=== PATIENT | female | born 1985 | race Caucasian/White ===

== ENCOUNTER 2021-06-22 06:14 | Inpatient (IN) | payer MEDICAID, SELFPAY ==
[2021-06-22] VITALS (11 sets, daily range): BP systolic 84–113; BP diastolic 50–68; PULSE 102–145; RESP 18–22; TEMP 36.3–37.2; O2SAT 99–100; BMI 30.6
--- NOTE | 2021-06-22 06:18 | HP.PCM.HOS_ITS ---
HPI - General General Date of Admission: 06/22/21 HPI Narrative JUNE KAYE, is a 35 F who presents to an outside hospital with bilateral lower extremity edema and redness. She states that this started within the last 24 to 48 hours, though appears to be better than when it first presented itself. She does have a history of IV drug use and she says that she last injected about a week ago but she only injects in her upper extremities not in her lower extremities. She thinks that she may have had a fever at some point but cannot be sure. Denies any shortness of breath, chest pain or lightheadedness. In the outside hospital she was found to be tachycardic with an elevated D-dimer but they felt that this could have potentially been a drawing error. She refused to have another IV started and so they have a policy at that hospital to not be able to do a CTA of the chest if the IV is smaller than the 20 which is what she has in her right forearm. At the outside hospital, her renal function was okay, her LFTs were little bit elevated and she did not have a white count or a fever. She was also oxygenating very well on room air. They were concerned for possible sepsis however the erythema, edema is bilateral which makes cellulitis extremely unlikely. She states that she is normally tachycardic but her blood pressure is also normally high. CPK at the outside hospital was also elevated as was her proBNP to about 300. She was given a dose of therapeutic Lovenox sec ondary to the D-dimer and the lower extremity edema. [facility] Medical History (Updated 06/22/21 @ 06:[address] Florin Mclean MD) IVDU (intravenous drug user) Smoker Tachycardia Home Medications NK 06/22/21 [History Last Taken Unknown] Allergy/AdvReac Type Severity Reaction Status Date / Time clindamycin Allergy Hives Verified 11/17/13 16:40 sulfamethoxazole Allergy Hives Verified 11/17/13 16:40 [From Bactrim] trimethoprim [From Bactrim] Allergy Hives Verified 11/17/13 16:40 Family History (Updated 06/22/21 @ 06:[address] Flroin Mclean MD) Other CAD (coronary artery disease) Surgical History (Updated 06/22/21 @ 06:10 by Jakub Balbuena) Hx of section Hx of cholecystectomy Social History Smoking Status: Current every day smoker tobacco type: cigarettes ROS Constitutional Constitutional: Reports fever(s); Denies chills, fatigue or malaise Eyes Eyes: Denies blurry vision ENT HEENT: Denies headache(s) or nasal discharge Cardiovascular Cardiovascular: Reports edema; Denies chest pain, dyspnea on exertion or syncope Respiratory/Chest Respiratory/Chest: Denies cough, shortness of breath at rest or shortness of breath with exertion Gastrointestinal Gastrointestinal: Denies constipation, diarrhea, nausea or vomiting Genitourinary Genitourinary: Denies dysuria Integumentary Integumentary: Reports erythema Neurologic Neurologic: Denies focal weakness, numbness or tremor(s) Psychiatric Psychiatric: Denies anxiety or depression Vital Signs Vital Signs Vital Signs: 06/22/21 06:00 Temperature 98.4 F Temperature Source Oral Pulse Rate 145 H Respiratory Rate 22 H Blood Pressure 84/63 L Blood Pressure Mean 70 Blood Pressure Source Monitor Blood Pressure Position Semi-Fowlers Blood Pressure Location Left Arm Pulse Ox 100 Oxygen Delivery Method Room Air Weight Weight: 195 lb 5.273 oz Body Mass Index (BMI) 30.6 Physical Exam Const alert and oriented x3 General Appearance: cooperative HEENT normocephalic and moist oral mucous membranes Eyes PERRL, EOMs intact bilaterally and conjunctivae normal Neck supple and no JVD Resp normal respiratory effort, no retractions, no use of accessory muscles and clear to auscultation bilaterally Auscultation: Negative for crackles, rales, rhonchi or wheezes Cardio regular rhythm, S1 normal heart sound, S2 normal heart sound and no murmurs Rate: tachycardic GI soft to palpation, non-tender and non-distended; Negative for hepatosplenomegaly Extremity General Extremity: edema bilateral lower extremity Details: moderate; Negative for clubbing or cyanosis Skin Skin Narrative: Bilateral lower extremity nonblanching redness with some warmth. She also has areas of skin breakdown on her legs and upper arms, which appears to be areas of picked at scabs Neuro no focal motor deficits and no sensory deficits noted Psych affect normal Appearance: appropriate Assessment & Plan Assessment/Plan (1) Bilateral lower extremity edema: PLAN: 1. Bilateral lower extremity edema with redness and an elevated D-dimer ? Continue with therapeutic Lovenox ? Obtain Doppler ultrasound of her lower extremities to evaluate for DVT ? Continue with an echo, she does have bilateral edema with an elevated BNP ? She did receive broad-spectrum antibiotics as an outpatient however bilateral cellulitis is not a clinical entity. She did have blood cultures drawn at the outside hospital which we did be followed up on. White blood cell count was normal and she is afebrile ? We will repeat lactic acid ? Continue with IV fluids ? If the Doppler ultrasound is negative may benefit from a CTA of the chest versus repeated D-dimer to make sure that it was actually an appropriate elevation 2. IV drug use with elevated LFTs ? We will repeat CMP this morning and then tomorrow ? 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
--- NOTE | 2021-06-22 06:19 | VDLE_ITS ---
Reason For Study: Elevated D-dimer RIGHT LEFT GSV is normal. GSV is normal. CFV is compressible, spontaneous, phasic, CFV is compressible, spontaneous, phasic, competent and demonstrates normal competent, and demonstrates normal augmentation. augmentation. FV is compressible, spontaneous, phasic, FV is compressible, spontaneous, phasic, competent and demonstrates normal competent and demonstrates normal augmentation. augmentation. POP V is compressible, spontaneous, phasic, POP V is compressible, spontaneous, phasic, competent and demonstrates normal competent and demonstrates normal augmentation. augmentation. T/P Trunk is compressible. T/P Trunk is compressible. PTV is compressible. PTV is compressible. RT PerV is compressible. LT PerV is compressible. Procedure This is a venous duplex using B-mode, color flow and spectral Doppler. Exam performed portable in patient room. A preliminary report was called and/or faxed to Dr. Aguilar. VL/Venous Duplex US - Ruddy Extrem Interpretation Summary No evidence for acute deep venous thrombosis bilateral lower extremities with p atent and compressible bilateral great saphenous veins. Ordering Physician: Florin Mclean Performed By: Kavitha Roberts RVT
--- NOTE | 2021-06-22 06:24 | ECHOD_ITS ---
Reason For Study: CHF Procedure This was a 2D Doppler, Color Flow transthoracic echocardiogram. Exam performed portable in patient room. Left Ventricle Normal LV size. The estimated ejection fraction is 55 %. No evidence for diastolic dysfunction. No regional wall motion abnormalities noted. Right Ventricle Normal RV size. Normal systolic function. Atria Normal left atrium. Normal right atrium. No doppler evidence for ASD. Mitral Valve There is no mitral valve stenosis. No mitral valve insufficiency. Tricuspid Valve There is no tricuspid stenosis. Unable to estimate RV systolic pressure due to inadequate jet, pulmonary artery pressure probably normal. Aortic Valve Trisinus/trileaflet aortic valve. There is no aortic stenosis. No aortic valve insufficiency. Pulmonic Valve There is no pulmonic valvular stenosis. Trivial pulmonic valve insufficiency. Great Vessels Normal aortic root. MMode/2D Measurements & Calculations LVIDd: 4.6 cm IVSd: 0.83 cm Ao root diam: 3.1 cm LVIDs: 3.1 cm LVPWd: 0.97 cm RVDd: 3.4 cm FS: 31.1 % LAV(MOD-bp): 54.5 ml LVAd ap4: 35.9 cm2 SV(MOD-sp4): 68.0 ml LAV(MOD-bp) Indexed: 27.2 ml/m2 LVLd ap4: 8.6 cm LAV(MOD-sp2): 49.5 ml EDV(MOD-sp4): 125.4 ml LAV(MOD-sp4): 57.4 ml EDV(sp4-el): 127.0 ml LVAs ap4: 21.8 cm2 LVLs ap4: 7.0 cm ESV(MOD-sp4): 57.4 ml ESV(sp4-el): 58.2 ml EF(MOD-sp4): 54.2 % EF(sp4-el): 54.1 % SV(sp4-el): 68.7 ml LA dimension(2D): 3.6 cm LA A4 area: 19.8 cm2 RA A4 area: 15.5 cm2 Time Measurements MV dec time: 0.12 sec Doppler Measurements & Calculations MV E max pilo: 97.2 cm/sec Lat Peak E' Pilo: 17.1 cm/sec Med Peak E' Pilo: 17.7 cm/sec MV A max pilo: 106.9 cm/sec E/E' lat: 5.7 E/E' med: 5.5 MV E/A: 0.91 Ao V2 max: 173.9 cm/sec LV V1 max: 132.8 cm/sec PA V2 max: 99.1 cm/sec Ao max P.1 mmHg LV V1 max P.1 mmHg TR max pilo: 314.1 cm/sec TR max P.5 mmHg ECHO/Echo Complete Interpretation Summary The estimated ejection fraction is 55 %. No evidence for diastolic dysfunction. Ordering Physician: Florin Mclean Performed By: Tina Johnson RDCS
[2021-06-22 06:48] LABS: Absolute Neutrophil Count 4.2 X10^3/uL (2.0-7.7); Basophil# 0.01 X10^3/uL; Basophil% 0.2 % (0-1); Hematocrit 27.8 % (37-47); Hemoglobin 9.3 g/dL (12.0-15.0); Lymphocyte % 8.2 % (19-41); Mean Corp Hgb Conc 33.5 g/dL (32-36); Mean Corpuscular Volume 89.7 fL (81-99); Mean Platelet Vol. 9.6 fl (6.2-12.0); Monocyte# 0.19 X10^3/uL; Monocyte% 3.9 % (0-10); NRBC Flagged by Analyzer 0 % (0-5); Neutrophil # 4.24 X10^3/uL (2.7-7.7); Neutrophil % 87.3 % (47-70); POSITIVE COUNT YES; POSITIVE DIFFERENTIAL YES; POSITIVE MORPHOLOGY YES; Platelet Count 96 K/mm3 (150-450); RBC Distribution Width CV 13.2 % (11.6-14.6); RBC Distribution Width SD 43.7 fl (35.1-43.9); White Blood Count 4.9 K/mm3 (4.4-11.0)
[2021-06-22 06:51] LABS: Differential Indicated SCAN CRITERIA MET
[2021-06-22] MEDS: 0.9% Normal Saline 1,000 ML 100 ML IV ×2 (06:55→17:34)
[2021-06-22] MEDS: 0.9% Saline Lock 10 ML Syringe IV ×2 (06:55→12:05)
[2021-06-22 07:04] LABS: ALB/GLOB Ratio 0.6 RATIO (0.9-2.4); AST(SGOT) 90 U/L (15-37); Alanine Aminotransfer ALT/SGPT 106 U/L (13-56); Albumin, Serum 2.4 g/dL (3.2-5.0); Alkaline Phosphatase 82 U/L (45-117); Anion Gap 5 (5-15); BUN 9 mg/dL (7-18); BUN/Creat Ratio 13.2 RATIO (10-20); Calcium,Total 7.2 mg/dL (8.5-10.1); Chloride 110 mmol/L (98-107); Creatinine, Serum 0.68 mg/dL (0.55-1.02); EST Glomerular Filtration Rate 105 mL/min (>60); Est Glom Filt Rate - Afr Amer 127 mL/min (>60); Estimated Creatinine Clearance 113.36 ml/min; Globulin 3.7 g/dL (2.2-4.2); Glucose 106 mg/dL (74-106); Potassium 3.2 mmol/L (3.5-5.1); Protein, Total 6.1 g/dL (6.4-8.2); Sodium Level 137 mmol/L (136-145)
[2021-06-22 07:05] LABS: Differential Comment SCANNED
[2021-06-22 07:09] LABS: Lactic Acid 1.4 mmol/L (0.4-1.9)
[2021-06-22 09:01] LABS: BNP,B-Type NATRIURETIC PEPTIDE 46.4 pg/mL (0-100)
--- NOTE | 2021-06-22 09:35 | CASEMGMT ---
RN CM Face to Face with patient for initial transition planning/care coordination assessment. RN CM introduced self and role at [facility]. Patient lying in bed, alert and oriented. Patient willing to participate in assessment and is able to answer all questions appropriately. Care providers, pharmacy, and demographics verified. Patient wishes to discharge home, denies need for home health at this time. Patient states she has no further needs or concerns at this time. CM to follow for discharge planning needs that may arise. PCP: No PCP, CM to provide patient with list Specialists: none [facility]erred Pharmacy: [facility] Insurance: none Prescription Benefit: none Living Will/HPOA: none LNOK: friend Living Arrangements: Patient lives with friend in a single story home with no steps to enter. Patient states she is independent at home. Transportation: friend DME/HHC: Patient denies DME or previous HHC. Patient states she smokes 1/2 PPD of cigarettes. Denies alcohol or other drug use to this CM. Disposition Plan: Patient to discharge home with follow-up plans in place. Kavitha ARRINGTON, RN, CM
[2021-06-22] MEDS: Acetaminophen 325 MG Tablet 650 MG PO ×2 (10:06→21:48)
--- NOTE | 2021-06-22 10:18 | CASEMGMT ---
Pt provided with list of local PCP's and states she was previously on [facility]ONG in [place] but then moved to [place]. Pt states 'just moved back' from [facility] and has not reapplied for [facility]. With further clarification, pt has been back in [place] since November. Pt also states last used meth last week and declines any assistance/resources, stating 'I don't think I have a problem.' Joey BECKHAM updated on all, voices understanding. Nirav FULLER CM
--- NOTE | 2021-06-22 11:10 | CASEMGMT ---
RN SABINA indicated patient would like a Medicaid application. RN SABINA also said patient declined resources for her Meth use. SW went to patient's room and she was lying in her bed with lights out. SW introduced self and patient said she did not feel well. SW left a Medicaid application and some substance abuse resources. Patient asked SW to turn down the temperature in the room. SW did this and left room closing door. Jana JIMENEZ
--- NOTE | 2021-06-22 11:48 | EKG12_ITS ---
Test Reason : TACHY Blood Pressure : / mmHG Vent. Rate : 111 BPM Atrial Rate : 111 BPM P-R Int : 136 ms QRS Dur : 076 ms QT Int : 332 ms P-R-T Axes : 062 055 044 degrees QTc Int : 451 ms Sinus tachycardia Low voltage QRS (Limb Leads) Confirmed by MYNOR SOLIS, PIETRO ([id number]), graphic editor KENYETTA GONZALEZ ([id number]) on 06/26/2021 11:40:53 AM Referred By: ODALYS Confirmed By:PIETRO LOWE MD
[2021-06-22] MEDS: Potassium Chloride Oral Tablet 20 MEQ 40 MEQ PO (12:05)
[2021-06-22 12:13] LABS: Thyroid Stim Hormone (TSH) 0.42 uIU/mL (0.358-3.74)
--- NOTE | 2021-06-22 13:44 | PN.HOSP_ITS ---
Subjective Subjective Patient seen and examined. She complained of weakness and tiredness. She was still tachycardic. She was having duplex of LEs at the time of review. Review of systems is otherwise negative. Objective Data Objective Data Vital Signs: Vital Signs Temp Pulse Resp BP Pulse Ox 98.6 F 124 H 18 108/67 100 06/22/21 09:50 06/22/21 10:00 06/22/21 09:50 06/22/21 09:50 06/22/21 09:50 Oxygen Delivery Method Room Air Weight: 195 lb 5.273 oz Body Mass Index (BMI) 30.6 Intake & Output: Intake and Output for Last 24 Hours 06/20/21 06/21/21 06/22/21 23:59 23:59 23:59 Intake Total 480 / 480 Balance 480 / 480 Lab / Micro Data Result Diagrams: 06/22/21 06:35 06/22/21 06:35 Labs: Laboratory Results - last 24 hr 06/22/21 06:35: Lactic Acid 1.4 06/22/21 06:35: WBC 4.9, RBC 3.10 L, Hgb 9.3 L, Hct 27.8 L, MCV 89.7, MCH 30.0, MCHC 33.5, RDW Std Deviation 43.7, RDW Coeff of Juice 13.2, Plt Count 96 L, MPV 9.6, Immature Gran % (Auto) 0.400, Neut % (Auto) 87.3 H, Lymph % (Auto) 8.2 L, [place] % (Auto) 3.9, Eos % (Auto) 0.0, Baso % (Auto) 0.2, Absolute Neuts (auto) 4.2, Absolute Lymphs (auto) 0.40 L, Nucleated RBC % 0, Differential Comment SCANNED 06/22/21 06:35: Sodium 137, Potassium 3.2 L, Chloride 110 H, Carbon Dioxide 22.0, Anion Gap 5, BUN 9, Creatinine 0.68, Estim Creat Clear Calc 113.36, Est GFR (MDRD) Af Amer 127, Est GFR (MDRD) Non-Af 105, BUN/Creatinine Ratio 13.2, Glucose 106, Calcium 7.2 L, Total Bilirubin 0.80, AST 90 H, ALT 106 H, Alkaline Phosphatase 82, Total Protein 6.1 L, Albumin 2.4 L, Globulin 3.7, Albumin/Globulin Ratio 0.6 L 06/22/21 06:35: B-Natriuretic Peptide 46.4 06/22/21 06:35: TSH 0.42 Radiography Diagnostic Testing: Radiology Impression Venous Doppler Study 06/22/21 06:19 Interpretation Summary No evidence for acute deep venous thrombosis bilateral lower extremities with patent and compressible bilateral great saphenous veins. Ordering Physician: Florin Mclean Performed By: Kavitha Roberts RVT Echocardiogram 06/22/21 06:24 Interpretation Summary The estimated ejection fraction is 55 %. No evidence for diastolic dysfunction. Ordering Physician: Florin Mclean Performed By: Tina Johnson RDCS Physical Exam Const alert and oriented x3 Orientation / Consciousness: lethargic Exam Limitations: no limitations HEENT head/scalp atraumatic Head and Scalp: normocephalic Mouth: dry mucous membranes Eyes PERRL, EOMs intact bilaterally and conjunctivae normal Neck no lymphadenopathy, supple and no JVD Resp normal respiratory effort, no retractions, no use of accessory muscles and clear to auscultation bilaterally Cardio regular rate, regular rhythm, S1 normal heart sound, S2 normal heart sound and no murmurs GI normal to inspection, nondistended, normoactive bowel sounds, soft to palpation, non-tender and non-distended Extremity Extremity Narrative: has erythema from ankle to mid wilson of both lower e xtremities, mildly tender, no guarding or rebound tenderness Peripheral Pulses: Yes pulses 2+ throughout Skin Skin Narrative: as under extremities Neuro oriented x3, CN's II-XII intact bilaterally and moves all extremities Sensorium / Orientation: awake and alert Psych affect normal Assessment & Plan Assessment/Plan (1) Bilateral lower extremity edema: PLAN: #Bilateral lower extremity edema and redness * Does not have any elevated white cell count. Legs tender to touch. * WBC is not elevated. There was concern about DVT but duplex of the lower extremities was negative. * in light of her history of IV drug use, I do think it is prudent to treat empirically for cellulitis though she doesnt have an elevated wbc. She says she did have a fever at home * will start on IV cefazolin empirically * #History of IV drug use * Says she uses methamphetamine IV. * Counseled to quit. LFTs were mildly elevated. Will trend. * #Tachycardia: * Patient has remained persistently tachycardic. Etiology is not clear. I do think it is prudent to get a CT of the chest to rule out any evidence of PE. * 2D echo done showed EF of 55% with no evidence of diastolic dysfunction. and no evidence of endocarditis * TSH is WNL * will do CTA to rule out a PE * * DVT prophylaxis; * was started on therapeutic Lovenox due to concerns about DVT. * Will await CTA results and then decide about stopping it.
--- NOTE | 2021-06-22 13:46 | CT_ITS ---
STUDY: CTA CHEST REASON FOR EXAM: Female, 35 years old. tachycardia, BILAT LOWER EXT EDEMA T REDNESS RADIATION DOSAGE (If Supplied By Facility): CTDIvol = ( 9.28 ) mGy, DLP = ( 342.77 ) mGycm TECHNIQUE: The examination was performed with the intravenous administration of IV 100mL Isovue-370. Post-processing of the angiographic images was performed, with multiplanar reformation and 3D reconstruction. Limited by motion artifact. Individualized dose optimization techniques were used for this CT. COMPARISON: None. FINDINGS: Normal enhancement of the main pulmonary artery and right and left pulmonary arteries. Normal enhancement of the bilateral peripheral pulmonary arteries. There is no demonstrated pulmonary embolism. Normal thoracic aorta and visualized great vessels. There is no demonstrated aortic dissection. Normal heart and pericardium. Normal mediastinum. Normal hilar regions. Normal visualized trachea and bronchi. The lungs are well expanded. There are bandlike parenchymal changes most consistent with atelectasis of the bilateral lungs. Normal pleura. Normal chest wall structures. Normal osseous structures. Normal visualized upper abdomen. CT/CTA Chest W/WO Contrast IMPRESSION: No central or segmental pulmonary embolism. Mild bibasilar atelectasis. Electronically Signed: Eliel Kurtz MD ([place]) at 15:15 EDT ,
--- NOTE | 2021-06-22 18:43 | NURSING ---
Reviewed charting with Aleksandra Camacho RN
[2021-06-22] MEDS: Cefazolin 2 GM in 0.9% Normal Saline 100 ML IV (21:44)
[2021-06-22] MEDS: MELATONIN 3 MG TABLET PO (21:48)
[2021-06-23 02:08] VITALS: BP 109/59; PULSE 110; RESP 18; TEMP 38.3; O2SAT 100
[2021-06-23] MEDS: 0.9% Normal Saline 1,000 ML 100 ML IV (02:13)
[2021-06-23 03:00] VITALS: PULSE 112
--- NOTE | 2021-06-23 04:56 | NURSING ---
Patient transfered from [facility] where blood cultures were obtained around 0440 they called stating cultures were positive for MRSA. Caridad notified
[2021-06-23] MEDS: 0.9% Saline Lock 10 ML Syringe IV (05:44)
--- NOTE | 2021-06-23 05:57 | PCM.RX.CS ---
Consult Pharmacy has been consulted to manage selected antiobiotic: Vancomycin Type of Consult: New start Labs: Sodium 137 mmol/L (136-145) 06/22/21 06:35 Potassium 3.2 mmol/L (3.5-5.1) L 06/22/21 06:35 Chloride 110 mmol/L (98-107) H 06/22/21 06:35 Carbon Dioxide 22.0 mmol/L (21.0-32.0) 06/22/21 06:35 Anion Gap 5 (5-15) 06/22/21 06:35 BUN 9 mg/dL (7-18) 06/22/21 06:35 Creatinine 0.68 mg/dL (0.55-1.02) 06/22/21 06:35 Est GFR (MDRD) Af Amer 127 mL/min (>60) 06/22/21 06:35 Est GFR (MDRD) Non-Af 105 mL/min (>60) 06/22/21 06:35 BUN/Creatinine Ratio 13.2 RATIO (10-20) 06/22/21 06:35 Glucose 106 mg/dL (74-106) 06/22/21 06:35 Weight used for dosin.6 kg Estimated Creatinine Clearance: 133 Goal Trough: 15-20 mcg/mL Pharmacy Plan for Drug Dosing: Pharmacy Service will continue to monitor and adjust dosing as required. Medications Vancomycin HCl 2,000 mg/ (Sodium Chloride) 540 mls @ 250 mls/hr IV X1 ONE Stop: 06/23/21 07:39 Last Admin: 06/23/21 05:44 Dose: 250 mls/hr Documented by: Vancomycin HCl (Vancomycin) 1,000 mg in 200 mls @ 200 mls/hr IV Q8H [facility] Follow-Up Labs: Trough Vancomycin Labs to be done on [date and time ordered]: 06/24 @ 6312
[2021-06-23 06:59] VITALS: PULSE 106
[2021-06-23 08:17] VITALS: BP 114/61; PULSE 110; RESP 18; TEMP 37.8; O2SAT 99
[2021-06-23] MEDS: Acetaminophen 325 MG Tablet 650 MG PO (08:26)
[2021-06-23 09:01] LABS: Absolute Lymphocyte Count 0.67 X10^3/uL (0.83-4.51); Absolute Neutrophil Count 2.9 X10^3/uL (2.0-7.7); Basophil# 0.01 X10^3/uL; Basophil% 0.3 % (0-1); Eosinophil# 0.01 X10^3/uL; Eosinophils% 0.3 % (0-5); Hematocrit 24.9 % (37-47); Hemoglobin 8.6 g/dL (12.0-15.0); Lymphocyte # 0.67 X10^3/ul (0.83-4.51); Lymphocyte % 17.2 % (19-41); Mean Corp Hgb Conc 34.5 g/dL (32-36); Mean Corpuscular Volume 86.8 fL (81-99); Mean Platelet Vol. 10.3 fl (6.2-12.0); Monocyte# 0.22 X10^3/uL; Monocyte% 5.7 % (0-10); NRBC Flagged by Analyzer 0 % (0-5); Neutrophil # 2.94 X10^3/uL (2.7-7.7); Neutrophil % 75.5 % (47-70); POSITIVE COUNT YES; POSITIVE MORPHOLOGY YES; Platelet Count 88 K/mm3 (150-450); RBC Distribution Width CV 13.3 % (11.6-14.6); RBC Distribution Width SD 42.5 fl (35.1-43.9); Red Blood Count 2.87 M/mm3 (4.2-5.4); White Blood Count 3.9 K/mm3 (4.4-11.0)
[2021-06-23 09:03] LABS: Differential Indicated SCAN CRITERIA MET
[2021-06-23 09:13] LABS: ALB/GLOB Ratio 0.6 RATIO (0.9-2.4); AST(SGOT) 66 U/L (15-37); Alanine Aminotransfer ALT/SGPT 83 U/L (13-56); Albumin, Serum 2.1 g/dL (3.2-5.0); Alkaline Phosphatase 127 U/L (45-117); Anion Gap 4 (5-15); BUN 6 mg/dL (7-18); BUN/Creat Ratio 9.4 RATIO (10-20); Calcium,Total 7.6 mg/dL (8.5-10.1); Chloride 112 mmol/L (98-107); Creatinine, Serum 0.64 mg/dL (0.55-1.02); EST Glomerular Filtration Rate 114 mL/min (>60); Est Glom Filt Rate - Afr Amer 137 mL/min (>60); Estimated Creatinine Clearance 120.45 ml/min; Globulin 3.6 g/dL (2.2-4.2); Glucose 99 mg/dL (74-106); Potassium 3.3 mmol/L (3.5-5.1); Protein, Total 5.7 g/dL (6.4-8.2); Sodium Level 137 mmol/L (136-145)
[2021-06-23 09:17] LABS: CPK Total, Creatine Kinase 33 U/L (26-192)
[2021-06-23 09:36] LABS: Differential Comment SCANNED
--- NOTE | 2021-06-23 10:44 | PN.HOSP_ITS ---
Subjective Subjective Patient seen and examined. She complained of feeling weak and said she had pain in her legs. She developed a fever of 100F today. Review of systems is otherwise negative. Objective Data Objective Data Vital Signs: Vital Signs Temp Pulse Resp BP Pulse Ox 100.0 F H 110 H 18 114/61 99 06/23/21 08:17 06/23/21 08:17 06/23/21 08:17 06/23/21 08:17 06/23/21 08:17 Oxygen Delivery Method Room Air Weight: 195 lb 5.273 oz Body Mass Index (BMI) 30.6 Intake & Output: Intake and Output for Last 24 Hours 06/21/21 06/22/21 06/23/21 23:59 23:59 23:59 Intake Total 1743.33 / 1743.33 1405 / 1405 Balance 1743.33 / 1743.33 1405 / 1405 Lab / Micro Data Result Diagrams: 06/23/21 08:40 06/23/21 08:40 Labs: Laboratory Results - last 24 hr 06/22/21 06:35: TSH 0.42 06/23/21 08:40: WBC 3.9 L, RBC 2.87 L, Hgb 8.6 L, Hct 24.9 L, MCV 86.8, MCH 30.0, MCHC 34.5, RDW Std Deviation 42.5, RDW Coeff of Juice 13.3, Plt Count 88 L, MPV 10.3, Immature Gran % (Auto) 1.000 H, Neut % (Auto) 75.5 H, Lymph % (Auto) 17.2 L, [place] % (Auto) 5.7, Eos % (Auto) 0.3, Baso % (Auto) 0.3, Absolute Neuts (auto) 2.9, Absolute Lymphs (auto) 0.67 L, Nucleated RBC % 0, Differential Comment SCANNED 06/23/21 08:40: Sodium 137, Potassium 3.3 L, Chloride 112 H, Carbon Dioxide 21.0, Anion Gap 4 L, BUN 6 L, Creatinine 0.64, Estim Creat Clear Calc 120.45, Est GFR (MDRD) Af Amer 137, Est GFR (MDRD) Non-Af 114, BUN/Creatinine Ratio 9.4 L, Glucose 99, Calcium 7.6 L, Total Bilirubin 0.70, AST 66 H, ALT 83 H, Alkaline Phosphatase 127 H, Total Protein 5.7 L, Albumin 2.1 L, Globulin 3.6, Albumin/Globulin Ratio 0.6 L 06/23/21 08:40: Total Creatine Kinase 33 Radiography Diagnostic Testing: Radiology Impression Chest CTA 06/22/21 13:46 IMPRESSION: No central or segmental pulmonary embolism. Mild bibasilar atelectasis. Electronically Signed: Eliel Kurtz MD ([place]) at 15:15 EDT , Physical Exam Const alert and oriented x3 General Appearance: cooperative Orientation / Consciousness: lethargic Exam Limitations: no limitations HEENT normocephalic and head/scalp atraumatic Head and Scalp: normocephalic Eyes PERRL, EOMs intact bilaterally and conjunctivae normal Neck no lymphadenopathy, supple and no JVD Resp normal respiratory effort, no retractions, no use of accessory muscles and clear to auscultation bilaterally Auscultation: Negative for crackles, rales, rhonchi or wheezes Cardio regular rate, regular rhythm, S1 normal heart sound, S2 normal heart sound and no murmurs Rate: tachycardic GI normal to inspection, nondistended, normoactive bowel sounds, soft to palpation, non-tender and non-distended; Negative for hepatosplenomegaly Extremity Extremity Narrative: erythema of lower extremities is improving. General Extremity: edema bilateral lower extremity Details: moderate; Negative for clubbing or cyanosis Peripheral Pulses: Yes pulses 2+ throughout Skin Skin Narrative: as under extremities Neuro oriented x3, CN's II-XII intact bilaterally, moves all extremities, no focal motor deficits and no sensory deficits noted Sensorium / Orientation: awake and alert Psych affect normal Appearance: appropriate Assessment & Plan Assessment/Plan (1) Bilateral lower extremity edema: PLAN: #MRSA bacteremia * Blood cultures at outside hospital apparently grew MRSA. Patient started on IV vancomycin yesterday as well as it was stopped. * Repeat blood cultures pending. * Infectious disease consulted. * Of note she did have 2D echo done yesterday which showed EF of 55% with no evidence of diastolic dysfunction and no evidence of endocarditis. #Bilateral lower extremity edema and redness * Improving. Now on IV vancomycin on account of positive MRSA in the blood. * WBC is 3.9. Duplex of the lower extremities was negative for DVT * #History of IV drug use * uses methamphetamine IV. * Counseled to quit. LFTs were mildly elevated. Will trend. * #Tachycardia: * Patient has remained persistently tachycardic. Etiology is not clear. * CT of the chest was negative for any evidence of PE I do think it is prudent to get a CT of the chest to rule out any evidence of PE. * 2D echo done showed EF of 55% with no evidence of diastolic dysfunction. and no evidence of endocarditis * TSH is WNL at 0.43 * will monitor * start on low dose metoprolol * DVT prophylaxis; * lovenox Charges/Coding Visit Charges Inpatient E&M: 06718 Subs Hosp L3
--- NOTE | 2021-06-23 12:35 | NURSING ---
At the beginning of shift, patient expressed to staff that she was going to leave if she didn't start feeling better. Patient was educated multiple times on the risks of leaving against medical advice, and the importance of staying for IV antibiotic treatment. Patient asked for pain medication for her legs, and refused the medication that was ordered. Patient asked for IV to be taken out so that she could leave. This RN removed peripheral IV and witnessed the signature of AMA papers. made aware, and patient walked out.
--- NOTE | 2021-06-23 16:30 | PCM.DC.SUM ---
Providers Date of Admission: 06/22/21 Primary Care Physician: Martha Primary Care Phys Consultations 06/23/21 08:02 Consult: Infectious Disease Routine Consulting Provider: Brandon Feliz Reason for Consult: MRSA bacteremia EMERGENT Consult: No MD Notified: Yes Date Notified: 06/23/21 Time Notified: 08:16 Method of Notification: Answering Service Reason For Visit: EDEMA AND REDNESS Diagnosis Discharge Diagnosis (1) Bilateral lower extremity edema: Status: Acute Code(s): R60.0 - Localized edema Medications at Discharge Home Medications NK 06/22/21 Hospital Course Operations None Procedures 2-D Echocardiogram Summary of Care Provided Minutes Spent on Discharge: 50 Hospital Course: Patient is a 35-year-old female with a past medical history of IV drug dependence was admitted from an outside hospital on 06/22/2021. She was admitted with a complaint of bilateral lower extremity redness and weakness which have been going on for about 24 to 48 hours. She said it had improved a bit since it first started but she also complained of related fever at home. Outside hospital she was found to be tachycardic and also had an elevated D-dimer. Patient refused to have another IV inserted she will have a CT of the chest. There was concern for sepsis due to bilateral lower extremity edema so she was transferred to our hospital. Duplex of lower extremities done here was negative for any evidence of DVT. She was started on empiric IV cefazolin for cellulitis in light of the lower extremity erythema and history of IV drug use. She also had a 2D echo which was negative for any evidence of vegetation and showed EF of 55% with no evidence of diastolic dysfunction. CPK was also not elevated. Patient's blood cultures done at outside hospital apparently grew MRSA so antibiotics were switched to IV vancomycin and repeat blood cultures were ordered. ID was also consulted. Patient however felt she was in withdrawal from IV methamphetamine and despite counseling about the need to stay for treatment, she signed out AGAINST MEDICAL ADVICE in the afternoon of 06/23/2021. Patient was seen on the morning of day of her signing out against medical advice. She said she felt like she was going into withdrawal from methamphetamine. She admitted to a fever earlier in the day. Review of systems was otherwise negative. Patient signed out AGAINST MEDICAL ADVICE ABOVE Physical Exam Const alert and oriented x3 General Appearance: cooperative Exam Limitations: no limitations HEENT normocephalic and head/scalp atraumatic Eyes PERRL, EOMs intact bilaterally and conjunctivae normal Neck no lymphadenopathy, supple and no JVD Resp normal respiratory effort, no retractions, no use of accessory muscles and clear to auscultation bilaterally Auscultation: Negative for crackles, rales, rhonchi or wheezes Cardio regular rate, regular rhythm, S1 normal heart sound, S2 normal heart sound and no murmurs Rate: tachycardic GI normal to inspection, nondistended, normoactive bowel sounds, soft to palpation, non-tender and non-distended; Negative for hepatosplenomegaly Extremity Extremity Narrative: erythema of lower extremities is improving. General Extremity: edema bilateral lower extremity Details: moderate; Negative for clubbing or cyanosis Skin Skin Narrative: as under extremities Neuro oriented x3, CN's II-XII intact bilaterally, moves all extremities, no focal motor deficits and no sensory deficits noted Sensorium / Orientation: awake and alert Psych affect normal Appearance: appropriate Weight / BMI Weight Weight: 195 lb 5.273 oz Body Mass Index (BMI) 30.6 ABG / Lab / Microbiology Data Result Diagrams: 06/23/21 08:40 06/23/21 08:40 Laboratory: Laboratory Results - last 24 hr 06/23/21 08:40: WBC 3.9 L, RBC 2.87 L, Hgb 8.6 L, Hct 24.9 L, MCV 86.8, MCH 30.0, MCHC 34.5, RDW Std Deviation 42.5, RDW Coeff of Juice 13.3, Plt Count 88 L, MPV 10.3, Immature Gran % (Auto) 1.000 H, Neut % (Auto) 75.5 H, Lymph % (Auto) 17.2 L, Gray % (Auto) 5.7, Eos % (Auto) 0.3, Baso % (Auto) 0.3, Absolute Neuts (auto) 2.9, Absolute Lymphs (auto) 0.67 L, Nucleated RBC % 0, Differential Comment SCANNED 06/23/21 08:40: Sodium 137, Potassium 3.3 L, Chloride 112 H, Carbon Dioxide 21.0, Anion Gap 4 L, BUN 6 L, Creatinine 0.64, Estim Creat Clear Calc 120.45, Est GFR (MDRD) Af Amer 137, Est GFR (MDRD) Non-Af 114, BUN/Creatinine Ratio 9.4 L, Glucose 99, Calcium 7.6 L, Total Bilirubin 0.70, AST 66 H, ALT 83 H, Alkaline Phosphatase 127 H, Total Protein 5.7 L, Albumin 2.1 L, Globulin 3.6, Albumin/Globulin Ratio 0.6 L 06/23/21 08:40: Total Creatine Kinase 33 Meaningful Use Info Meaningful Use Diagnoses (Choose all that apply): None applicable Discharge Plan Admission Admit Date/Time: 06/22/21 06:14 Primary Reason for Your Visit: lower extremity redness, bacteremia Attending Provider: Beatriz Aguilar Primary Care Provider: Care Physician,No Primary Consulting Providers: Brandon Feliz Discharge Orders/Prescriptions Prescriptions: No Action NK RF: 0 Referrals / Follow Up: [facility] Doctor,Out of [NON-STAFF] - Disposition Disposition (needs filled in before D/C Order can be placed): Against Medical Advice Charges/Coding Visit Charges Inpatient E&M: [id number] Disch Hosp
--- NOTE | 2021-06-24 00:46 | PCM.PN.BLA ---
Progress Note Notified by lab that her blood cultures did come back positive for gram-positive cocci. Attempted to notify however there was no answer at the phone number listed. She is aware that blood cultures at the outside hospital grew MRSA and she still elected to leave the hospital AMA
== END 2021-06-23 12:22 | disposition left against medical advice (07) | DRG 603 ==
LOC: MS3 09:34 → PCU 09:56
PROVIDERS: Admitting Provider Family Medicine; Visit Provider Student in an Organized Health Care Education/Training Program
DX: L03.115 Cellulitis of right lower limb (principal); R78.81 Bacteremia; F15.90 Other stimulant use, unspecified, uncomplicated; F17.210 Nicotine dependence, cigarettes, uncomplicated; B95.62 Methicillin resistant Staphylococcus aureus infection as the cause of diseases classified elsewhere; R00.0 Tachycardia, unspecified; Z53.29 Procedure and treatment not carried out because of patient's decision for other reasons; L03.116 Cellulitis of left lower limb
CPT/HCPCS: 36415; 71275; 80053; 82550; 83605; 83880; 84443; 85025; 87040; 87149; 87186; 93005; 93306; 93970; 97802; 99406; J7030; J7040; Q9967; A4216